=== PATIENT | female | born 1985 | race Caucasian/White ===

== ENCOUNTER 2016-08-26 12:21 | Emergency (ER) | payer MEDICAID ==
[~2016-08-26] VITALS: Ht 162.6 cm; Wt 58.0 kg
[~2016-08-26 12:21] MED LIST: TRAM50TA PO; ZOFR4TAB PO
[2016-08-26 12:22] VITALS: BP 113/76; PULSE 110; RESP 20; TEMP 98.7; O2SAT 100
[2016-08-26] MEDS ORDERED: IBUPROFEN 600 MG TAB PO ONE (12:45)
--- NOTE | 2016-08-26 12:48 | PD ---
HPI Chief Complaint: Cold / Flu Symptoms Time Seen by Provider: 12:45 Travel History International Travel<30 days: No Contact w/Intl Traveler<30days: No Traveled to known affect area: No History of Present Illness HPI 30-year-old female with history of no significant past medical issues, presents to the ER today for several days history of cough, sore throat, runny nose, nausea, body aches, headaches, and flulike symptoms. She does not know any sick contacts. Modifying Factors: None Associated Signs & Symptoms: Flulike symptoms, body aches, coughing, sore throat , runny nose, nausea Risk Factors: None PFSH Past Medical History Arthritis: No Asthma: No Blood Disorders: No Anxiety: Yes Depression: Yes Heart Rhythm Problems: No Cancer: No Cardiovascular Problems: Yes Chemotherapy: No Chest Pain: No Congestive Heart Failure: No COPD: No Cerebrovascular Accident: No Diabetes: No Diminished Hearing: No Endocrine: No Gastrointestinal Disorders: No GERD: No Glaucoma: No Genitourinary: No Headaches: Yes Hepatitis: No Hiatal Hernia: No Hypertension: No Immune Disorder: No Kidney Stones: No Musculoskeletal: No Neurologic: Yes Psychiatric: Yes Reproductive: No Respiratory: Yes (BRONCHITIS) Immunizations Current: No Migraines: Yes (EVERY DAY) Myocardial Infarction: No Radiation Therapy: No Renal Failure: No Seizures: No Sickle Cell Disease: No Sleep Apnea: No Thyroid Disease: No Ulcer: No ?: Not LMP: 08/20/16 : 4 Para: 2 : 1 Ectopic : No Ovarian Cysts: No Tubal Ligation: No Past Surgical History Abdominal Surgery: No AICD: No Appendectomy: No Arteriovenous Shunt: No Cardiac Surgery: No Section: No Cholecystectomy: No Ear Surgery: No Endocrine Surgery: No Eye Surgery: No Genitourinary Surgery: No Gynecologic Surgery: No Hysterectomy: No Insulin Pump: No Joint Replacement: No Neurologic Surgery: No Oral Surgery: No Pacemaker: No Thoracic Surgery: No Other Surgery: Yes Social History Alcohol Use: No Tobacco Use: Yes Substance Use: No (DENIES ) Allergies-Medications (Allergen,Severity, Reaction): Coded Allergies: No Known Allergies (Verified , 03/08/16) Reported Meds & Prescriptions Reported Meds & Active Scripts Active Tramadol (Tramadol HCl) 50 Mg Tab 50 Mg PO Q6H PRN Zofran (Ondansetron HCl) 4 Mg Tab 4 Mg PO Q6HR PRN Review of Systems Except as stated in HPI: all other systems reviewed are Neg Physical Exam Narrative GENERAL: Well-developed young white female patient who is in mild distress. Awake and oriented 3. SKIN: Focused skin assessment warm/dry. HEAD: Atraumatic. Normocephalic. EYES: Pupils equal and round. No scleral icterus. No injection or drainage. ENT: No nasal bleeding or discharge. Mucous membranes pink and moist. Mild pharyngeal erythema without exudates. Tonsillar pillars are symmetrical. NECK: Trachea midline. No JVD. CARDIOVASCULAR: Regular rate and rhythm. No murmur appreciated. RESPIRATORY: No accessory muscle use. Clear to auscultation. Breath sounds equal bilaterally. GASTROINTESTINAL: Abdomen soft, non-tender, nondistended. Hepatic and splenic margins not palpable. MUSCULOSKELETAL: No obvious deformities. No clubbing. No cyanosis. No edema. NEUROLOGICAL: Awake and alert. No obvious cranial nerve deficits. Motor grossly within normal limits. Normal speech. PSYCHIATRIC: Appropriate mood and affect; insight and judgment normal. Data Data Last Documented VS Vital Signs Date Time Temp Pulse Resp B/P Pulse Ox O2 Delivery O2 Flow Rate FiO2 08/26/16 12:55 106 18 98 Room Air 08/26/16 12:22 98.7 113/76 Orders Influenzae A/B Antigen (08/26/16 12:42) Ed Urine Pregnancytest Poc (08/26/16 12:45) Ibuprofen (Motrin) (08/26/16 12:45) MDM Medical Decision Making Medical Screen Exam Complete: Yes Emergency Medical Condition: Yes Medical Record Reviewed: Yes Differential Diagnosis Viral syndrome versus influenza Narrative Course Lab work shows that she is positive for influenza. At this point, my plan would be to give her symptomatically treatment for influenza and have her follow -up with primary care physician. Return for any worsening in symptoms as needed. The plan has been discussed with the patient and she states understanding. Diagnosis Primary Impression: Influenza Med/Other Pt SpecificInfo: Prescription(s) given Scripts Oseltamivir (Tamiflu)75 Mg Cap75 Mg PO BID 5 Days Ref 0 Prov:Rios Mock MD 08/26/16 Ibuprofen (Motrin Ib)200 Mg Dsa299 Mg PO Q6H PRN (PAIN SCALE 1 TO 10) #21 TAB Ref 0 Prov:Rios Mock MD 08/26/16 Ondansetron Odt (Zofran Odt)4 Mg Tab4 Mg SL Q6HR PRN (Nausea/Vomiting) #7 TAB Ref 0 Prov:Rios Mock MD 08/26/16 Disposition: 01 DISCHARGE HOME Condition: Stable Rios Mock MD August 26, 2016 12:47
[2016-08-26] MEDS ORDERED: ZOFR4TAB3 SL (13:35)
[2016-08-26] MEDS ORDERED: OSEL75 PO (13:35)
[2016-08-26] MEDS ORDERED: MOTR200T4 PO (13:35)
[2016-08-26 14:09] VITALS: RESP 16
== END 2016-08-26 14:10 | disposition home or self-care (01) ==
LOC: NEPD 12:21
DX: J10.1 Influenza due to other identified influenza virus with other respiratory manifestations (principal); Z72.0 Tobacco use
CPT/HCPCS: 87804; 99283